=== PATIENT | female | born 1990 | race American Indian/Alaskan Native ===

== ENCOUNTER 2017-02-04 19:00 | Emergency (ER) | payer OTHER ==
[2017-02-04 19:32] VITALS: PULSE 103; RESP 20; TEMP 98.2
[2017-02-04 19:51] LABS: BASO # 0.1 K/uL (0.0-0.2); BASO % 0.7 % (0.0-2.0); EOS # 0.2 K/uL (0.0-0.7); EOS % 1.8 % (0.0-4.0); HEMATOCRIT 38.8 % (34.0-47.0); LYMPH # 1.8 K/uL (1.0-4.3); LYMPH % 17.7 % (20.0-40.0); MEAN CELL VOLUME 86.8 fL (81.0-99.0); MEAN CORPUSCULAR HEMOGLOBIN 29.1 pg (27.0-31.0); MEAN CORPUSCULAR HGB CONC 33.5 g/dL (33.0-37.0); MEAN PLATELET VOLUME 8.6 fL (7.2-11.7); MONO # 0.7 K/uL (0.0-0.8); MONO % 6.6 % (0.0-10.0); RED CELL DISTRIBUTION WIDTH 12.4 % (11.5-14.5); WHITE BLOOD COUNT 10.4 K/uL (4.8-10.8)
[2017-02-04 19:59] LABS: CHLORIDE 101 mmol/L (98-107)
[2017-02-04 20:00] LABS: SODIUM 137 mmol/L (132-148)
[2017-02-04 20:02] LABS: ALB/GLOB RATIO 1.2 (1.0-2.1); ALKALINE PHOSPHATASE 60 U/L (38-126); AST/SGOT 49 U/L (14-36); BILIRUBIN,TOTAL 0.8 mg/dL (0.2-1.3); CARBON DIOXIDE 22 mmol/L (22-30); GFR AFRICAN-AMERICAN > 60; TOTAL PROTEIN 8.6 g/dL (6.3-8.3)
[2017-02-04 20:03] LABS: ALT/SGPT 23 U/L (9-52); BLOOD UREA NITROGEN 15 mg/dL (7-17); CALCIUM 9.5 mg/dl (8.6-10.4); GLUCOSE,RANDOM 107 mg/dL (65-105); RBC URINE 1 /hpf (0-3); URINE BILIRUBIN NEGATIVE (NEGATIVE); URINE BLOOD NEGATIVE (NEGATIVE); URINE COLOR Yellow (YELLOW); URINE GLUCOSE (UA) NORMAL (Normal); URINE KETONE TRACE mg/dL (NEGATIVE); URINE LEUKOCYTE ESTERASE 1+ Leu/uL (Negative); URINE PROTEIN NEGATIVE (NEGATIVE); WBC URINE 3 /hpf (0-5)
[2017-02-04] MEDS ORDERED: Sodium Chloride 0.9% 1,000 ML IV ONE (20:13)
--- NOTE | 2017-02-04 20:13 | C.PDOC ---
History Of Present Illness Patient presents to the ER with a complaint of mid epigastric tenderness, nausea and vomiting. Patient reports decreased PO intake. Denies fever, chills or diarrhea. Time Seen by Provider: 02/04/17 20:12 Chief Complaint (Nursing): Abdominal Pain History Per: Patient History/Exam Limitations: no limitations Onset/Duration Of Symptoms: Hrs Current Symptoms Are (Timing): Still Present Severity: Mild Pain Scale Rating Of: 4 Location Of Pain/Discomfort: Epigastric Radiation Of Pain To:: None Quality Of Discomfort: Unable To Describe Associated Symptoms: Nausea, Vomiting, Loss Of Appetite. denies: Fever, Chills , Diarrhea Exacerbating Factors: None Alleviating Factors: None Last Bowel Movement: Yesterday Recent travel outside of the [place]: No Abnormal Vaginal Bleeding: No Past Medical History Reviewed: Historical Data, Nursing Documentation, Vital Signs Vital Signs: Last Vital Signs Temp 98.2 F 02/04/17 19:29 Pulse 103 H 02/04/17 19:29 Resp 20 02/04/17 21:55 BP 110/64 02/04/17 21:55 Pulse Ox 100 02/04/17 22:03 - Medical History PMH: No Chronic Diseases Surgical History: No Surg Hx Family History: States: No Known Family Hx - Social History Hx Alcohol Use: Yes Hx Substance Use: No Review Of Systems Constitutional: Negative for: Fever, Chills ENT: Negative for: Throat Pain Cardiovascular: Negative for: Chest Pain Respiratory: Negative for: Shortness of Breath Gastrointestinal: Positive for: Nausea, Vomiting, Abdominal Pain (Epigastric). Negative for: Diarrhea Genitourinary: Negative for: Dysuria Musculoskeletal: Negative for: Back Pain Skin: Negative for: Rash, Lesions Neurological: Negative for: Weakness Psych: Negative for: Anxiety Physical Exam - Physical Exam Appears: Non-toxic Skin: Warm, Dry Eye(s): bilateral: Normal Inspection Oral Mucosa: Moist Neck: Supple Chest: Symmetrical, No Tenderness Cardiovascular: Rhythm Regular, No Murmur Respiratory: No Rales, No Rhonchi, No Wheezing Gastrointestinal/Abdominal: Soft, Tenderness (Mild mid epigastric ) Back: Normal Inspection Extremity: Normal ROM Extremity: Bilateral: Normal ROM Neurological/Psych: Oriented x3, Normal Speech, Normal Cognition Gait: Steady ED Course And Treatment - Laboratory Results Result Diagrams: 02/04/17 19:43 02/04/17 19:43 O2 Sat by Pulse Oximetry: 100 (Room air) Pulse Ox Interpretation: Normal Progress Note: Abd/pel w/ IV contrast ordered. Pepcid, zofran and IV fluids. Reevaluation Time: 22:01 Reassessment Condition: Improved Disposition Counseled Patient/Family Regarding: Studies Performed, Diagnosis, Need For Followup, Rx Given - Disposition Referrals: Minh Wray MD [Staff Provider] - Disposition: HOME/ ROUTINE Disposition Time: 20:13 Condition: FAIR Prescriptions: Ondansetron ODT [Zofran ODT] 1 odt PO BID PRN #10 odt PRN Reason: Nausea/Vomiting Instructions: Gas and Bloating (ED), Abdominal Pain (ED) - Clinical Impression Clinical Impression: Abdominal pain, Nausea - Scribe Statement The provider has reviewed the documentation as recorded by the Scribsteven Maloney All medical record entries made by the Scribe were at my direction and personally dictated by me. I have reviewed the chart and agree that the record accurately reflects my personal performance of the history, physical exam, medical decision making, and the department course for this patient. I have also personally directed, reviewed, and agree with the discharge instructions and disposition.
[2017-02-04] MEDS ORDERED: Sodium Chloride 0.9% 1,000 ML ONE (20:25)
[2017-02-04] MEDS ORDERED: Iodixanol 320 MG/ML 100 ML BOTTLE IV ONE (20:44)
[2017-02-04] MEDS ORDERED: DiphenhydrAMINE 50 mg/ml Inj IVP STA (21:37)
[2017-02-04] MEDS ORDERED: DiphenhydrAMINE 50 mg/ml Inj ONE (21:39)
[2017-02-04 21:55] VITALS: BP 110/64
[2017-02-04 22:04] VITALS: O2SAT 100
--- NOTE | 2017-02-05 16:00 | CT ---
PROCEDURE: CT abdomen pelvis dated 10/2016 HISTORY: abd pain, elevated lipase COMPARISON: None. TECHNIQUE: Contiguous axial images of the abdomen and pelvis performed on following intravenous injection of approximately 100 cc Visipaque 320 contrast material. . Coronal and Sagittal reformats generated. Radiation dose: Total exam DLP = 413.01 mGy-cm. This CT exam was performed using one or more of the following dose reduction techniques: Automated exposure control, adjustment of the mA and/or kV according to patient size, and/or use of iterative reconstruction technique. FINDINGS: LOWER THORAX: Small hiatal hernia. No infiltrate effusion or basilar pneumothorax. Heart size within range of normal. No evidence of significant pericardial effusion previous LIVER: Liver is enlarged measuring approximately 19 cm in CC dimension. Almeida will no obvious hepatic mass or collection. Portal and splenic veins are opacified. Unremarkable. No gross lesion or ductal dilatation. GALLBLADDER AND BILE DUCTS: The gallbladder is physiologically distended and somewhat elongated at in CC dimension. . No evidence of intraluminal gallbladder calculi. PANCREAS: Proximal pancreatic slightly prominent. No evidence of pancreatic mass collection or calcification. SPLEEN: Spleen exhibits normal size and attenuation pattern. ADRENALS: No adrenal lesions. KIDNEYS AND URETERS: Kidneys demonstrate symmetric nephrograms. No evidence of nephrolithiasis or hydronephrosis. BLADDER: Urinary bladder is incompletely distended which may account for thick-walled appearance. Cystitis not excluded. Will stop will REPRODUCTIVE: Unremarkable. APPENDIX: What is felt to represent the appendix best seen on axial sequence 66- 67. No obvious sign periappendiceal inflammatory changes. BOWEL: Evaluation of the bowel is somewhat limited due to the lack of oral contrast material. Stomach is incompletely distended which presumably accounts for thick-walled appearance. Visualized loops of small bowel exhibit normal contour and caliber. No evidence of acute mechanical small bowel obstruction. There also appears to be fecalized content within the small bowel Moderately large amount of stool is seen throughout the cecum and ascending colon ascending consistent with fecal retention/constipation. PERITONEUM: Unremarkable. No fluid collection. No free air. LYMPH NODES: Unremarkable. No enlarged lymph nodes. VASCULATURE: Unremarkable. No aortic aneurysm. BONES: No fracture or destructive lesion. OTHER FINDINGS: None. IMPRESSION: The slightly prominent appearing proximal pancreatic duct nonspecific. Mild hepatomegaly. Findings suggest mild fecal retention. Small hiatal hernia. Small fat containing umbilical hernia.
== END 2017-02-04 22:30 | disposition home or self-care (01) ==
LOC: C.ER 19:00
DX: R10.13 Epigastric pain (principal); R11.0 Nausea
CPT/HCPCS: 74177; 80053; 81001; 83690; 84703; 85025; 96361; 96374; 96375; 99284; J1200; J2405; J2930; J7040; Q9967

== ENCOUNTER 2017-07-14 01:33 | Emergency (ER) | payer OTHER ==
[2017-07-14 01:55] VITALS: O2SAT 99
[2017-07-14 02:35] LABS: RBC URINE 23 /hpf (0-3); URINE BACTERIA RARE (<OCC); URINE BILIRUBIN NEGATIVE (NEGATIVE); URINE BLOOD 2+ (NEGATIVE); URINE COLOR Yellow (YELLOW); URINE GLUCOSE (UA) NORMAL (Normal); URINE KETONE NEGATIVE (NEGATIVE); URINE LEUKOCYTE ESTERASE 2+ Leu/uL (Negative); URINE PROTEIN 1+ mg/dL (NEGATIVE); URINE UROBILINOGEN NORMAL mg/dL (0.2-1.0); WBC URINE 10 /hpf (0-5)
[2017-07-14 03:48] VITALS: BP 108/72; PULSE 79; RESP 16; TEMP 99.3
--- NOTE | 2017-07-14 03:51 | C.PDOC ---
History Of Present Illness 26 year old female with questionable Hx of endometriosis presents to the ED with complaints of increase pain to the lower abdomen pelvic area for about 2 days. Patient states she has an appointment with her OBGYN in a week but her pain was unbearable and that is why she decided to come in today. Patient denies active vaginal bleeding, nausea, vomit, or fever. Time Seen by Provider: 07/14/17 01:56 Chief Complaint (Nursing): Abdominal Pain History Per: Patient History/Exam Limitations: no limitations Onset/Duration Of Symptoms: Days Current Symptoms Are (Timing): Still Present Location Of Pain/Discomfort: Suprapubic Radiation Of Pain To:: None Quality Of Discomfort: "Pain" Associated Symptoms: denies: Fever, Chills, Nausea, Vomiting Exacerbating Factors: None Alleviating Factors: None Recent travel outside of the [place]: No Additional History Per: Patient Past Medical History Reviewed: Historical Data, Nursing Documentation, Vital Signs Vital Signs: Last Vital Signs Temp 99.3 F 07/14/17 03:46 Pulse 79 07/14/17 03:46 Resp 16 07/14/17 03:46 BP 108/72 07/14/17 03:46 Pulse Ox 99 07/14/17 03:52 - Medical History PMH: No Chronic Diseases Surgical History: No Surg Hx Family History: States: Unknown Family Hx - Social History Hx Alcohol Use: Yes Hx Substance Use: No Review Of Systems Constitutional: Negative for: Fever, Chills, Weakness Cardiovascular: Negative for: Chest Pain Respiratory: Negative for: Cough, Shortness of Breath Gastrointestinal: Positive for: Abdominal Pain. Negative for: Nausea, Vomiting , Constipation Musculoskeletal: Negative for: Back Pain Neurological: Negative for: Weakness, Numbness Physical Exam - Physical Exam Appears: Non-toxic, No Acute Distress Skin: Normal Color, Warm, Dry Head: Atraumatic, Normacephalic Oral Mucosa: Moist Neck: Normal ROM, Supple Chest: Symmetrical, No Tenderness Cardiovascular: Rhythm Regular, No Murmur Respiratory: Normal Breath Sounds, No Accessory Muscle Use, No Rales, No Rhonchi , No Wheezing Gastrointestinal/Abdominal: Soft, Tenderness (Across suprapubic region), No Guarding, No Rebound Back: No CVA Tenderness Pelvic: Vaginal Discharge (Brownish ), No Other (no adnexal pain) Extremity: Normal ROM, No Pedal Edema, No Deformity, No Swelling Neurological/Psych: Oriented x3, Normal Speech, Normal Cognition Gait: Steady ED Course And Treatment O2 Sat by Pulse Oximetry: 99 (On RA) Pulse Ox Interpretation: Normal Medical Decision Making Medical Decision Making: Impression : 26 y/o female with Hx of endometriosis with lower abdomen pain Plan: * Toradol 30 mg IVP administered * UA ordered Yonathan was feeling better after the medication was give, was given instructions to follow up with her OBGYN but if symptoms worsen to come back to the ED. Disposition Counseled Patient/Family Regarding: Diagnosis, Need For Followup, Rx Given - Disposition Referrals: Teo Leon MD [Staff Provider] - Disposition: HOME/ ROUTINE Disposition Time: 03:48 Condition: STABLE Additional Instructions: Please follwo up with [employer] doctor Take meds as prescribed Return to ER if worse Prescriptions: Acetaminophen with Codeine [Tylenol with Codeine #3 Tablet] 1 each PO QID PRN # 14 tablet PRN Reason: Pain, Severe (8-10) Ibuprofen [Motrin] 600 mg PO Q6H #20 tab Nitrofurantoin Macrocrystals [Macrobid] 100 mg PO BID #14 cap Instructions: Urinary Tract Infection in Women (ED), Pelvic Pain in Women (ED) Forms: [employer] ([place]) - Clinical Impression Clinical Impression: Dysmenorrhea, UTI (urinary tract infection) - PA / [employer] REPA[employer]MAN / Resident Statement MD/DO has reviewed & agrees with the documentation as recorded. - Scribe Statement The provider has reviewed the documentation as recorded by the Scribe Flako Tran All medical record entries made by the Scribe were at my direction and personally dictated by me. I have reviewed the chart and agree that the record accurately reflects my personal performance of the history, physical exam, medical decision making, and the department course for this patient. I have also personally directed, reviewed, and agree with the discharge instructions and disposition.
== END 2017-07-14 04:16 | disposition home or self-care (01) ==
LOC: C.ER 01:33
DX: N39.0 Urinary tract infection, site not specified (principal); N94.6 Dysmenorrhea, unspecified
CPT/HCPCS: 81001; 84703; 96374; 99285; J1885

== ENCOUNTER 2018-01-22 18:49 | Emergency (ER) | payer OTHER ==
[2018-01-22 18:53] VITALS: RESP 18
--- NOTE | 2018-01-22 19:39 | C.PDOC ---
History Of Present Illness 27 y/o female A2 whose LMP was 11 weeks ago and recently told that she was . She was also told that she "sexually transmitted disease" and believes she was told that she had Herpes, but denies any genital rashes or pain. She is concerned and frightened for the health of the and would like a second opinion. Patient denies any urinary symptoms, back pain, fever. She admits to a scant clear vaginal discharge. Patient is tearful during the interview Chief Complaint (Nursing): Abnormal Skin Integrity History Per: Patient Onset/Duration Of Symptoms: Unknown Severity: None Additional History Per: Patient Past Medical History Vital Signs: Last Vital Signs Temp 98.3 F 01/22/18 20:50 Pulse 75 01/22/18 20:50 Resp 18 01/22/18 20:50 BP 115/81 01/22/18 20:50 Pulse Ox 99 01/22/18 20:50 - Medical History PMH: No Chronic Diseases Surgical History: No Surg Hx Family History: States: Unknown Family Hx - Social History Hx Alcohol Use: Yes Hx Substance Use: No - Immunization History Hx Tetanus Toxoid Vaccination: No Hx Influenza Vaccination: No Hx Pneumococcal Vaccination: No Review Of Systems Except As Marked, All Systems Reviewed And Found Negative. Genitourinary: Positive for: Vaginal Discharge Physical Exam - Physical Exam Appears: Well, No Acute Distress Skin: Normal Color, Warm, Dry Eye(s): bilateral: Normal Inspection, PERRL, EOMI Nose: Normal Throat: Normal Neck: Normal Cardiovascular: Rhythm Regular Respiratory: Normal Breath Sounds Gastrointestinal/Abdominal: Normal Exam, Other (fundal height at the pubic rim) Back: Normal Inspection Pelvic: Normal External Exam, Normal Bimanual Exam, No Vaginal Bleeding, Vaginal Discharge (yellow, cloudy discharge in the vault), No Cervical Motion Tenderness, No Cervix Open, No Adnexal Tenderness, No Mass, Enlarged Uterus (10 weeks, nontender), No Tender Uterus Extremity: Normal ROM ED Course And Treatment O2 Sat by Pulse Oximetry: 100 Medical Decision Making Medical Decision Making: Impression: nonspecific vaginosis given patient's treatment options limited. I will consult up-to-date doubt PVD however we will send those cultures. Plan: - Send swabs for culture Progress: Due to the controversy concerning treatment of bacterial vaginosis in females, no antibiotics will be offered at this time. Disposition - Disposition Referrals: Yadira Fields MD [Staff Provider] - Disposition: HOME/ ROUTINE Disposition Time: 23:22 Condition: GOOD Prescriptions: Amoxicillin 875 mg PO BID #14 tablet Instructions: Bacterial Vaginosis, How to Adapt to Physical Changes During , Medications and Forms: [employer] (Kinyarwanda) Print Language: [place]ENLANDIC - Clinical Impression Clinical Impression: Bacterial vaginosis,
[2018-01-22 19:45] LABS: HCG,QUALITATIVE URINE POSITIVE (NEGATIVE)
[2018-01-22 19:52] LABS: SQUAMOUS EPITHIAL 18 /hpf (0-5); URINE BACTERIA RARE (<OCC); URINE BILIRUBIN NEGATIVE (NEGATIVE); URINE BLOOD NEGATIVE (NEGATIVE); URINE CLARITY Hazy (Clear); URINE COLOR Yellow (YELLOW); URINE GLUCOSE (UA) NORMAL (Normal); URINE LEUKOCYTE ESTERASE 2+ Leu/uL (Negative); URINE PROTEIN NEGATIVE (NEGATIVE)
[2018-01-22 20:56] VITALS: BP 115/81; PULSE 75; TEMP 98.3
[2018-01-22 23:23] VITALS: O2SAT 100
== END 2018-01-22 20:50 | disposition home or self-care (01) ==
LOC: C.ER 18:49
DX: O23.591 Infection of other part of genital tract in pregnancy, first trimester (principal); N76.0 Acute vaginitis; Z3A.11 11 weeks gestation of pregnancy